=== PATIENT | male | born 1990 | race African-American/Black ===

== ENCOUNTER 2017-08-19 18:02 | Emergency (ER) | payer MEDICAID ==
[~2017-08-19] VITALS: Ht 177.8 cm; Wt 74.0 kg
[2017-08-19] MEDS ORDERED: ACETAMINOPHEN 325MG TABLET PO ONE (23:15)
[2017-08-19] MEDS ORDERED: IBUPROFEN 800MG TABLET PO ONE (23:15)
[2017-08-19 23:36] VITALS: BP 103/63
== END 2017-08-20 00:58 | disposition home or self-care (01) ==
LOC: ER 20:25
DX: J06.9 Acute upper respiratory infection, unspecified (principal)
CPT/HCPCS: 71045; 87070; 87430; 87804; 99285

== ENCOUNTER 2018-11-17 01:46 | Emergency (ER) | payer MEDICAID ==
[~2018-11-17] VITALS: Ht 177.8 cm; Wt 86.2 kg
[2018-11-17] MEDS ORDERED: ACETAMINOPHEN 500MG TABLET PO ONE (02:45)
[2018-11-17 03:05] LABS: BASOPHILS % 1.5 % (0.0-2.0); EOSINOPHILS % 2.9 % (0.0-5.0); HEMATOCRIT. 43.8 % (42.0-52.0); LYMPHOCYTES % 36.1 % (20.0-50.0); MEAN CORPUSCULAR HEMOGLOBIN 31.4 pg (28.0-32.0); MEAN CORPUSCULAR VOLUME 91.6 fL (80.0-94.0); MEAN PLATELET VOLUME 7.6 fl (7.4-10.4); MONOCYTES % 12.7 % (2.0-8.0); NEUTROPHILS % 46.8 % (40.0-76.0); PLATELET 302 x1000/uL (130-400); RED BLOOD CELL COUNT 4.78 mill/uL (4.7-6.1); RED CELL DISTRIBUTION WIDTH 14.1 % (11.6-14.6)
[2018-11-17 03:09] LABS: CHLORIDE 108 mEq/L (98-107)
[2018-11-17 03:50] VITALS: BP 113/64
[2018-11-17] MEDS ORDERED: CEPHALEXIN 250MG CAPSULE PO ONE (04:00)
== END 2018-11-17 04:54 | disposition home or self-care (01) ==
LOC: ER 01:46
DX: L03.114 Cellulitis of left upper limb (principal); F17.200 Nicotine dependence, unspecified, uncomplicated; F12.10 Cannabis abuse, uncomplicated
CPT/HCPCS: 36415; 73130; 80048; 99284